=== PATIENT | male | born 1990 | race American Indian/Alaskan Native ===

== ENCOUNTER 2020-07-30 11:54 | Emergency (ER) | payer SELFPAY ==
[2020-07-30 12:22] VITALS: BP 119/80
[2020-07-30] MEDS ORDERED: predniSONE 20 MG TAB PO ONE (13:09)
[2020-07-30] MEDS ORDERED: KETOROLAC 60 MG/2 ML INJ IM ONE (13:09)
--- NOTE | 2020-07-30 13:52 | XRay Report ---
LUMBAR SPINE 3 VIEWS INDICATION / CLINICAL INFORMATION: low back pain s/p fall. COMPARISON: None available. FINDINGS: VERTEBRAE: No acute fracture. No significant malalignment. DISC SPACES / FACET JOINTS:Mild L5-S1 degenerative change with facet arthropathy. PARASPINAL SOFT TISSUES:No significant abnormality. ADDITIONAL FINDINGS: None. Signer Name: Dharmesh Mccormick MD Signed: 07/30/2020 1:48 PM Workstation Name: [id number]
--- NOTE | 2020-07-30 13:59 | Emergency Department Report ---
ED Back Pain/Injury HPI - General Chief Complaint: Back Pain/Injury Stated Complaint: LOWER BACK PAIN Time Seen by Provider: 07/30/20 13:09 Source: patient Limitations: No Limitations - History of Present Illness Initial Comments: This is a 30-year-old male nontoxic, well nourished in appearance, no acute signs of distress presents to the ED with c/o of acute lower back pain. Patient stated that the past 3 days he a trip and fall and went to work the past 3 days but symptos of pain are worsening. Denies any radiation of pain. Patient denies any other injuries or trauma. Denies any bladder or bowel instability. Patient denies any urinary symptoms. Denies any fever, chills, nausea, vomiting, headache, stiff neck, chest pain or shortness of breath. Patient denies any numbness or tingling. Denies any allergies. Denies significant past medical history. MD Complaint: back pain -: days(s) (3) Similar Symptoms Previously: No Radiation: none Severity: mild Quality: aching Consistency: intermittent Improves With: immobilization, sitting upright Worsens With: movement, walking Context: fall Associated Symptoms: denies other symptoms. denies: confusion, weakness, numbness, difficulty walking, cough, difficulty urinating, diaphoresis, incontinence, fever/chills, constipation, headaches, abdominal pain, loss of appetite, malaise, nausea/vomiting, rash, seizure, shortness of breath, syncope - Related Data Previous Rx's Medication Instructions Recorded Last Taken Type Cyclobenzaprine [Flexeril] 10 mg PO QHS PRN #10 tablet 07/30/20 Unknown Rx Naproxen 500 mg PO Q12H PRN #12 tablet 07/30/20 Unknown Rx Allergies Allergy/AdvReac Type Severity Reaction Status Date / Time No Known Allergies Allergy Verified 07/30/20 12:18 ED Review of Systems ROS: Stated complaint: LOWER BACK PAIN Other details as noted in HPI Constitutional: denies: chills, fever Eyes: denies: eye pain, eye discharge, vision change ENT: denies: ear pain, throat pain Respiratory: denies: cough, shortness of breath, wheezing Cardiovascular: denies: chest pain, palpitations Endocrine: no symptoms reported Gastrointestinal: denies: abdominal pain, nausea, diarrhea Genitourinary: denies: urgency, dysuria Musculoskeletal: back pain. denies: joint swelling, arthralgia Skin: denies: rash, lesions Neurological: denies: headache, weakness, paresthesias Psychiatric: denies: anxiety, depression Hematological/Lymphatic: denies: easy bleeding, easy bruising ED Past Medical Hx - Past Medical History Previous Medical History?: No - Surgical History Past Surgical History?: No - Social History Smoking Status: Current Every Day Smoker Substance Use Type: None - Medications Home Medications: Home Medications Medication Instructions Recorded Confirmed Last Taken Type Cyclobenzaprine [Flexeril] 10 mg PO QHS PRN #10 tablet 07/30/20 Unknown Rx Naproxen 500 mg PO Q12H PRN #12 tablet 07/30/20 Unknown Rx ED Physical Exam - General Limitations: No Limitations General appearance: alert, in no apparent distress - Head Head exam: Present: atraumatic, normocephalic - Eye Eye exam: Present: normal appearance - Neck Neck exam: Present: normal inspection, full ROM. Absent: tenderness, meningismus, lymphadenopathy - Respiratory Respiratory exam: Absent: respiratory distress - Cardiovascular Cardiovascular Exam: Absent: regular rate - Extremities Exam Extremities exam: Present: normal inspection, full ROM, normal capillary refill. Absent: tenderness - Back Exam Back exam: Present: normal inspection, full ROM, paraspinal tenderness (lumbar paraspinal). Absent: tenderness, CVA tenderness (R), CVA tenderness (L), muscle spasm, vertebral tenderness, rash noted - Expanded Back Exam Expanded Back exam: Absent: saddle anesthesia Back exam: Negative Straight Leg Raising: Right, Left - Neurological Exam Neurological exam: Present: alert, oriented X3, normal gait - Psychiatric Psychiatric exam: Present: normal affect, normal mood - Skin Skin exam: Present: warm, dry, intact, normal color. Absent: rash ED Course Vital Signs 07/30/20 12:18 Temperature 98.1 F Pulse Rate 97 H Respiratory 18 Rate Blood Pressure 119/80 O2 Sat by Pulse 99 Oximetry - Reevaluation(s) Reevaluation #1: 07/30/20 14:06 Patient is speaking in full sentences with no signs of distress noted. ED Medical Decision Making - Radiology Data Referring Physician: COLLEEN LAWLER Patient Name: IRVIN PASCUAL Date of : 1990 Sex: Male Report Date: 2020-07-30 Report Status: Finalized [facility] [address] [place] [address] XRay Report Signed Patient: IRVIN PASCUAL MR#: See [id number] : 1990 Acct:[id number] Age/Sex: 30 / M ADM Date: 07/30/20 Loc: ED Attending Dr: Ordering Physician: COLLEEN LAWLER NP Date of Service: 07/30/20 Procedure(s): XR spine lumbosacral 2-3V Accession Number(s): [id number] cc: COLLEEN LAWLER NP Fluoro Time In Minutes: LUMBAR SPINE 3 VIEWS INDICATION / CLINICAL INFORMATION: low back pain s/p fall. COMPARISON: None available. FINDINGS: VERTEBRAE: No acute fracture. No significant malalignment. DISC SPACES / FACET JOINTS:Mild L5-S1 degenerative change with facet arthropathy. PARASPINAL SOFT TISSUES:No significant abnormality. ADDITIONAL FINDINGS: None. Signer Name: Dharmesh Fox MD Signed: 07/30/2020 1:48 PM Workstation Name: [id number] Transcribed By: Dictated By: DHARMESH FOX Electronically Authenticated By: DHARMESH FOX Signed Date/Time: 07/30/20 1348 DD/ 1347 TD/TT: - Medical Decision Making This is a 30-year-old male that presents with low back strain. Patient is stable was examined by me. There is no spinal tenderness. There is no cauda equina syndrome during examination. No bladder or bowel instability. Patient received Toradol 60 mg IM and prednisone in the ED which stated that his symptoms has resolved and subsided. Patient is discharged with muscle relaxant and Naproxzen. Patient was instructed not to operate any machinery while taking muscle relaxant as they cause her drowsiness. Patient was referred to Follow- up with a primary care doctor in 3-5 days or if symptoms worsen and continue return to emergency room as soon as possible. At time of discharge, the patient does not seem toxic or ill in appearance. No acute signs of distress noted. Patient agrees to discharge treatment plan of care. No further questions noted by the patient. This chart is dictated with using [employer] Dictation Program Critical care attestation.: If time is entered above; I have spent that time in minutes in the direct care of this critically ill patient, excluding procedure time. ED Disposition Clinical Impression: Low back strain Qualifiers: Encounter type: initial encounter Qualified Code(s): S39.012A - Strain of muscle, fascia and tendon of lower back, initial encounter Disposition: TO HOME OR SELFCARE Is pt being admited?: No Does the pt Need Aspirin: No Condition: Stable Instructions: Low Back Strain (ED), Cyclobenzaprine (By mouth) Additional Instructions: Follow-up with your primary care doctor in 3-5 days or if symptoms worsen such as bladder or bowel stability, chest pain, short of breath, numbness or tingling sensation in extremities, headache, dizziness, visual changes, nausea vomiting, or abdominal pain, return back to emergency room as was possible. Take ibuprofen and Flexeril as prescribed. Do not operate heavy machinery while taking Flexeril due to sedation Prescriptions: Cyclobenzaprine [Flexeril] 10 mg PO QHS PRN #10 tablet PRN Reason: Muscle Spasm Naproxen 500 mg PO Q12H PRN #12 tablet PRN Reason: Pain , Severe (7-10) Referrals: PRIMARY CARE, [Primary Care Provider] - 3-5 Days PABLO QUINTANILLA MD [Staff Physician] - 3-5 Days
== END 2020-07-30 14:21 | disposition home or self-care (01) ==
LOC: ED 11:54
DX: S39.012A Strain of muscle, fascia and tendon of lower back, initial encounter (principal); F17.200 Nicotine dependence, unspecified, uncomplicated; X58.XXXA Exposure to other specified factors, initial encounter; Y93.89 Activity, other specified; Y92.89 Other specified places as the place of occurrence of the external cause; Y99.8 Other external cause status
CPT/HCPCS: 72100; 96372; 99283; J1885; J7512

== ENCOUNTER 2020-11-14 10:35 | Emergency (ER) | payer SELFPAY ==
[2020-11-14 11:13] VITALS: BP 128/88
--- NOTE | 2020-11-14 11:19 | Event Note ---
ED Screening Note ED Screening Note: Patient is a 30-year-old male who presents emergency room with complaints of left-sided testicular pain and swelling that began a week ago He denies any fall or injury He states he was doing some heavy lifting and did feel a pulling sensation in the groin He denies any penile discharge or dysuria This initial assessment/diagnostic orders/clinical plan/treatment(s) is/are subject to change based on patients health status, clinical progression and re- assessment by fellow clinical providers in the ED. Further treatment and workup at subsequent clinical providers discretion. Patient/guardian urged not to elope from the ED as their condition may be serious if not clinically assessed and managed. Initial orders include: UA, ultrasound
[2020-11-14 11:46] LABS: Bilirubin,Urine NEG (Negative); Blood,Urine NEG (Negative); Color,Urine Straw (Yellow); Protein,Urine <15 mg/dL mg/dL (Negative); Urobilinogen,Urine < 2.0 mg/dL (<2.0)
--- NOTE | 2020-11-14 12:23 | Ultrasound Report ---
ULTRASOUND SCROTUM INDICATION: left sided testicular pain and swelling x1 week. COMPARISON None available. FINDINGS: RIGHT TESTICLE: 4.5 x 2.6 x 3.2 cm. Normal echogenicity. Normal color flow. No solid or cystic lesion s. RIGHT EPIDIDYMIS: A right epididymal cyst measures 4 x 3 mm without suspicious features. No other sig nificant abnormality. LEFT TESTICLE: 4.1 x 2.4 x 2.9 cm. Normal echogenicity. Normal color flow. No solid or cystic lesions . LEFT EPIDIDYMIS: 2 cysts without suspicious features measure up to 5 x 5 mm. No other significant abn ormality. HYDROCELE: Small right hydrocele. No left hydrocele. VARICOCELE: None seen. ADDITIONAL FINDINGS: None. IMPRESSION: 1. Small right hydrocele. No other acute abnormality is seen to explain the patient's symptoms. 2. Additional findings as above. Signer Name: Jasbir Morillo MD Signed: 11/14/2020 12:18 PM Workstation Name: [id number]
--- NOTE | 2020-11-14 14:02 | Emergency Department Report ---
ED Male HPI - General Chief complaint: Urogenital-Male Stated complaint: PAIN LEFT TESTICLE Time Seen by Provider: 11/14/20 11:18 Source: patient Mode of arrival: Ambulatory Limitations: No Limitations - History of Present Illness Initial comments: There is a pleasant 30-year-old male presents the emergency department chief complaint of left-sided testicular pain over the past 2 to 3 weeks. He describes this started after lifting something heavy. He describes it as a dull heavy sensation in the testicle primarily in the bottom of the testicle and rates it 6 out of 10 in severity. He denies any changes with urination, fever, chills, night sweats, headache, dizziness, blurry vision, nausea, vomiting, diarrhea, chest pain, shortness of breath. He denies any past medical history, current medications or known allergies to medications. - Related Data Previous Rx's Medication Instructions Recorded Last Taken Type Cyclobenzaprine [Flexeril] 10 mg PO QHS PRN #10 tablet 07/30/20 Unknown Rx DOXYCYCLINE Hyclate [Vibramycin 100 mg PO Q12HR #28 capsule 11/14/20 Unknown Rx CAP] Naproxen 500 mg PO Q12H PRN #30 tablet 11/14/20 Unknown Rx Allergies Allergy/AdvReac Type Severity Reaction Status Date / Time No Known Allergies Allergy Verified 07/30/20 12:18 ED Review of Systems ROS: Stated complaint: PAIN LEFT TESTICLE Other details as noted in HPI Comment: All other systems reviewed and negative Constitutional: denies: chills, fever Eyes: denies: eye pain, eye discharge, vision change ENT: denies: ear pain, throat pain Respiratory: denies: cough, shortness of breath, wheezing Cardiovascular: denies: chest pain, palpitations Endocrine: no symptoms reported Gastrointestinal: denies: abdominal pain, nausea, diarrhea Genitourinary: as per HPI, testicular pain. denies: urgency, dysuria Musculoskeletal: denies: back pain, joint swelling, arthralgia Skin: denies: rash, lesions Neurological: denies: headache, weakness, paresthesias Psychiatric: denies: anxiety, depression Hematological/Lymphatic: denies: easy bleeding, easy bruising ED Past Medical Hx - Past Medical History Previous Medical History?: No - Surgical History Past Surgical History?: No - Social History Smoking Status: Current Every Day Smoker Substance Use Type: None - Medications Home Medications: Home Medications Medication Instructions Recorded Confirmed Last Taken Type Cyclobenzaprine [Flexeril] 10 mg PO QHS PRN #10 tablet 07/30/20 Unknown Rx DOXYCYCLINE Hyclate [Vibramycin 100 mg PO Q12HR #28 capsule 11/14/20 Unknown Rx CAP] Naproxen 500 mg PO Q12H PRN #30 tablet 11/14/20 Unknown Rx ED Physical Exam - General Limitations: No Limitations General appearance: alert, in no apparent distress - Head Head exam: Present: atraumatic, normocephalic - Eye Eye exam: Present: normal appearance, PERRL, EOMI Pupils: Present: normal accommodation - ENT ENT exam: Present: normal exam, mucous membranes moist - Neck Neck exam: Present: normal inspection, full ROM. Absent: tenderness, meningismus - Respiratory Respiratory exam: Present: normal lung sounds bilaterally. Absent: respiratory distress, wheezes, rales, rhonchi, stridor - Cardiovascular Cardiovascular Exam: Present: regular rate, normal rhythm, normal heart sounds. Absent: systolic murmur, diastolic murmur, rubs, gallop - GI/Abdominal GI/Abdominal exam: Present: soft, normal bowel sounds. Absent: distended, tenderness, guarding, rebound, rigid - Rectal Rectal exam: Present: deferred - exam: Present: normal inspection, testicular tenderness (Mild tenderness to the inferior portion of the left testicle, normal testicular lie,), vertical testicular lie, other (No edema, no epididymal tenderness, no obvious inguinal hernias). Absent: scrotal swelling - Extremities Exam Extremities exam: Present: normal inspection, full ROM, normal capillary refill. Absent: tenderness, calf tenderness - Back Exam Back exam: Present: normal inspection, full ROM. Absent: tenderness, CVA tenderness (R), CVA tenderness (L) - Neurological Exam Neurological exam: Present: alert, oriented X3, normal gait - Psychiatric Psychiatric exam: Present: normal affect, normal mood - Skin Skin exam: Present: warm, dry, intact, normal color. Absent: rash ED Course Vital Signs 11/14/20 11:11 Temperature 99.6 F Pulse Rate 77 Respiratory 16 Rate Blood Pressure 128/88 [Right] O2 Sat by Pulse 98 Oximetry ED Medical Decision Making - Lab Data Lab Results 11/14/20 Range/Units 11:27 Urine Color Straw (Yellow) Urine Turbidity Clear (Clear) Urine pH 8.0 H (5.0-7.0) Ur Specific [place] 1.013 (1.003-1.030) Urine Protein <15 mg/dl (Negative) mg/dL Urine Glucose (UA) Neg (Negative) mg/dL Urine Ketones Neg (Negative) mg/dL Urine Blood Neg (Negative) Urine Nitrite Neg (Negative) Urine Bilirubin Neg (Negative) Urine Urobilinogen < 2.0 (<2.0) mg/dL Ur Leukocyte Esterase Neg (Negative) Urine WBC (Auto) 1.0 (0.0-6.0) /HPF Urine RBC (Auto) 1.0 (0.0-6.0) /HPF U Epithel Cells (Auto) 1.0 (0-13.0) /HPF - Radiology Data Radiology results: report reviewed, image reviewed Ultrasound Report Signed Patient: IRVIN PASCUAL MR#: See [id number] : 1990 Acct:[id number] Age/Sex: 30 / M ADM Date: 11/14/20 Loc: ED Attending Dr: Ordering Physician: MATEO GONZALEZ Date of Service: 11/14/20 Procedure(s): US testicular doppler comp Accession Number(s): [id number] cc: MATEO GONZALEZ ULTRASOUND SCROTUM INDICATION: left sided testicular pain and swelling x1 week. COMPARISON None available. FINDINGS: RIGHT TESTICLE: 4.5 x 2.6 x 3.2 cm. Normal echogenicity. Normal color flow. No solid or cystic lesions. RIGHT EPIDIDYMIS: A right epididymal cyst measures 4 x 3 mm without suspicious features. No other significant abnormality. LEFT TESTICLE: 4.1 x 2.4 x 2.9 cm. Normal echogenicity. Normal color flow. No solid or cystic lesions. LEFT EPIDIDYMIS: 2 cysts without suspicious features measure up to 5 x 5 mm. No other significant abnormality. HYDROCELE: Small right hydrocele. No left hydrocele. VARICOCELE: None seen. ADDITIONAL FINDINGS: None. IMPRESSION: 1. Small right hydrocele. No other acute abnormality is seen to explain the patient's symptoms. 2. Additional findings as above. Signer Name: Jasbir Morillo MD Signed: 11/14/2020 12:18 PM Workstation Name: [id number] Transcribed By: [place] Dictated By: Jasbir Morillo MD Electronically Authenticated By: Jasbir Morillo MD Signed Date/Time: 11/14/20 1218 - Medical Decision Making Patient nontoxic in no acute distress. Vital signs are stable. Ultrasound was unremarkable other than a mild hydrocele. No evidence of testicular torsion. The patient's urine was unremarkable as well. Patient does not have any symptoms of a UTI or urethritis. On his exam he had no obvious inguinal hernias and definitely no evidence of incarcerated or strangulated hernia. Due to symptoms I will treat him for orchitis with doxycycline and recommended scrotal support and anti-inflammatories for pain and will refer him to urology for evaluation. He is instructed to return to the emerge part if he develops any change or worsening symptoms. He verbalized understanding the diagnosis, treatment plan and follow-up instructions. - Differential Diagnosis Testicular torsion, orchitis, epididymitis Critical care attestation.: If time is entered above; I have spent that time in minutes in the direct care of this critically ill patient, excluding procedure time. ED Disposition Clinical Impression: Testicular pain, left Disposition: DC-01 TO HOME OR SELFCARE Is pt being admited?: No Condition: Stable Instructions: Testicular Self-Exam Prescriptions: Naproxen 500 mg PO Q12H PRN #30 tablet PRN Reason: Pain , Severe (7-10) DOXYCYCLINE Hyclate [Vibramycin CAP] 100 mg PO Q12HR #28 capsule Referrals: SHEA CORDERO MD [Staff Physician] - 3-5 Days ANANYA RUIZ MD [Staff Physician] - 3-5 Days Time of Disposition: 14:08
== END 2020-11-14 14:29 | disposition home or self-care (01) ==
LOC: ED 10:35
DX: N50.812 Left testicular pain (principal); F17.200 Nicotine dependence, unspecified, uncomplicated; Z79.899 Other long term (current) drug therapy
CPT/HCPCS: 81001; 93975